=== PATIENT | female | born 1975 | race Hispanic/Latino ===

== ENCOUNTER 2018-01-12 15:07 | Emergency (ER) | payer BC ==
--- NOTE | 2018-01-12 16:50 | RAD REPORT ---
EXAM DESCRIPTION: CT - Head Brain Wo Cont - 01/12/2018 4:40 pm CLINICAL HISTORY: Headache COMPARISON: June 2016 TECHNIQUE: Axial 5 mm thick images of the head were obtained without IV contrast. All CT scans are performed using dose optimization technique as appropriate and may include automated exposure control or mA/KV adjustment according to patient size. FINDINGS: No intracranial hemorrhage, mass, edema or shift of mid-line structures. No acute infarcti on changes seen. No abnormal extra-axial fluid collections. Ventricles are normal. Mastoid air cells and visualized portions of the paranasal sinuses are clear. No acute bony findings. IMPRESSION: Negative non-contrast CT head examination for acute finding. No identifiable change com parison.
--- NOTE | 2018-01-12 17:09 | EDPHYS ---
Physician Documentation [facility] Name: Aure Mireles Age: 42 yrs Sex: Female : 1975 Arrival Date: 01/12/2018 Time: 15:13 Bed 20 Private MD: ED Physician Georges Castrejon HPI: 01/12 16:25 This 42 yrs old Female presents to ER via Ambulatory with complaints of jmm Headache - MIGRAINE. 16:25 The patient complains of pain to the top of head, forehead, right synagogue, left synagogue, jmm left frontal area, left side of the back of head, left occipital area, left base of the skull, right frontal area, right side of the back of head, right occipital area and right base of the skull. The patient describes the headache as aching. Onset: The symptoms/episode began/occurred gradually, 1 week(s) ago. Associated signs and symptoms: Pertinent negatives: fever, malaise, neck stiffness, vomiting. This is a 42 year old female with a history of dm, htn, that presents to the ED with a gradual onset headache beginning approx 1 week ago. Evaluated at urgent care. Currently taking tylenol 3 for pain which relieves pain. Patient denies acute onset, denies fever, denies weakness. . 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 - Social history:: Smoking status: Patient/guardian denies using tobacco. - Ebola Screening: : Patient denies travel to an Ebola-affected area in the 21 days before illness onset. ROS: 16:25 Constitutional: Negative for fever, chills, and weight loss, Cardiovascular: Negative jmm for chest pain, palpitations, and edema, Respiratory: Negative for shortness of breath, cough, wheezing, and pleuritic chest pain, Abdomen/GI: Negative for abdominal pain, nausea, vomiting, diarrhea, and constipation. 16:25 Neuro: Positive for headache. 16:25 All other systems are negative. Exam: 16:25 Constitutional: This is a well developed, well nourished patient who is awake, alert, jmm and in no acute distress. Head/Face: atraumatic. Chest/axilla: Normal chest wall appearance and motion. Cardiovascular: Regular rate and rhythm. No edema appreciated Respiratory: Normal respirations, no respiratory distress appreciated Abdomen/GI: Non distended, soft Back: Normal ROM Skin: General appearance color normal MS/ Extremity: Moves all extremities, no obvious deformities appreciated, no edema noted to the lower extremities 16:25 Neuro: Orientation: is normal, Mentation: is normal, Memory: is normal, Cerebellar function: normal finger to nose testing, Motor: is normal. 16:25 Psych: Behavior/mood is pleasant, cooperative. Vital Signs: 15:28 BP 136 / 90; Pulse 78; Resp 17; Temp 97.2(TE); Pain 6/10; tw2 16:14 BP 118 / 79; Pulse 70; Resp 18; Pulse Ox 96% ; rb1 17:14 BP 122 / 81; Pulse 74; Resp 18; Pulse Ox 99% on R/A; Pain 4/10; rb1 MDM: 16:25 Patient medically screened. db 17:01 Data reviewed: vital signs, nurses notes, radiologic studies, CT scan. Counseling: I chintan had a detailed discussion with the patient and/or guardian regarding: the historical points, exam findings, and any diagnostic results supporting the discharge/admit diagnosis, the need for outpatient follow up, to return to the emergency department if symptoms worsen or persist or if there are any questions or concerns that arise at home. 01/12 16:26 Order name: CT Head Brain wo Cont; Complete Time: 16:54 [facility] Administered Medications: 17:29 Not Given (Patient Refused): Ketorolac 30 mg IM once iw Disposition: 01/12/18 17:08 Discharged to Home. Impression: Headache. - Condition is Stable. - Discharge Instructions: General Headache Without Cause. - Medication Reconciliation Form, Thank You Letter, Antibiotic Education, Prescription Opioid Use form. - Follow up: Zackary Wellington MD; When: As needed; Reason: Continuance of care. Addendum: 01/14/2018 15:37 Co-signature as Attending Physician, Georges Castrejon MD. g s Signatures: Dispatcher [employer] EDMS Roel Gutierrez PA PA jmm Williams, Irene, RN RN iw Magdalena Luna, RN RN rb1 Jimena Quispe RN RN tw2 Georges Castrejon MD MD gs Corrections: (The following items were deleted from the chart) 01/12 17:30 17:08 01/12/2018 17:08 Discharged to Home. Impression: Headache. Condition is Stable. iw Forms are Medication Reconciliation Form, Thank You Letter, Antibiotic Education, Prescription Opioid Use. Follow up: Zackary Wellington; When: As needed; Reason: Continuance of care. chintan
--- NOTE | 2018-01-12 17:09 | ER ---
Nurse's Notes [facility] Name: Aure Mireles Age: 42 yrs Sex: Female : 1975 Arrival Date: 01/12/2018 Time: 15:13 Bed 20 Private MD: Diagnosis: Headache Presentation: 01/12 15:27 Presenting complaint: Patient states: i have been having migraines for going on 4 tw2 weeks, its gotten worse recently, Tuesday went to urgent care, started tylenol 3 and was told to come here to get cat scan. Presenting complaint: Patient states: also having some blurry vision. Transition of care: patient was not received from another setting of care. Onset of symptoms was January 12, 2018. Risk Assessment: Do you want to hurt yourself or someone else? Patient reports no desire to harm self or others. Initial Sepsis Screen: Does the patient meet any 2 criteria? No. Patient's initial sepsis screen is negative. Does the patient have a suspected source of infection? No. Patient's initial sepsis screen is negative. Care prior to arrival: None. 15:27 Method Of Arrival: Ambulatory tw2 15:27 Acuity: CHRISTOPHE 3 tw2 Triage Assessment: 15:50 Headache History: Other pt. stated, "I haven't every had a headache like this.". Pain: rb1 Also complains of photophobia. 15:50 General: Appears uncomfortable, Behavior is calm, cooperative, Denies fever. Pain: rb1 Complains of pain in head Pain currently is 6 out of 10 on a pain scale. Pain began x 4 weeks. Neuro: Level of Consciousness is awake, alert, obeys commands, Oriented to person, place, time, situation. Cardiovascular: Capillary refill < 3 seconds is brisk in bilateral fingers. Respiratory: Airway is patent Respiratory effort is even, unlabored, Respiratory pattern is regular, symmetrical. GI: Reports nausea, since x 4 weeks. : No signs and/or symptoms were reported regarding the genitourinary system. Derm: Skin is pink, warm \\T\\ dry. 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 - Social history:: Smoking status: Patient/guardian denies using tobacco. - Ebola Screening: : Patient denies travel to an Ebola-affected area in the 21 days before illness onset. Screenin:50 Abuse screen: Denies threats or abuse. Nutritional screening: No deficits noted. rb1 Tuberculosis screening: No symptoms or risk factors identified. Fall Risk None identified. Assessment: 15:31 Reassessment: pt states "i may have to leave to go to class at 6pm but i will come tw2 back". 15:50 General: Appears uncomfortable, Behavior is calm, cooperative, Denies fever. Pain: rb1 Complains of pain in entire head Pain currently is 6 out of 10 on a pain scale. Pain began x 4 weeks. Neuro: Level of Consciousness is awake, alert, obeys commands, Oriented to person, place, time, situation. Neuro: Reports headache entire. Cardiovascular: Capillary refill < 3 seconds is brisk in bilateral fingers. Respiratory: Airway is patent Respiratory effort is even, unlabored, Respiratory pattern is regular, symmetrical. GI: Reports nausea, since x 4 weeks. : No signs and/or symptoms were reported regarding the genitourinary system. Derm: Skin is dry, Skin is normal, Skin temperature is warm. Musculoskeletal: Range of motion: intact in all extremities. 16:40 Reassessment: Patient appears in no apparent distress at this time. No changes from rb1 previously documented assessment. 17:29 Reassessment: Patient appears in no apparent distress at this time. Patient and/or iw family updated on plan of care and expected duration. Pain level reassessed. Patient is alert, oriented x 3, equal unlabored respirations, skin warm/dry/pink. Patient states feeling better. Patient states symptoms have improved. Vital Signs: 15:28 BP 136 / 90; Pulse 78; Resp 17; Temp 97.2(TE); Pain 6/10; tw2 16:14 BP 118 / 79; Pulse 70; Resp 18; Pulse Ox 96% ; rb1 17:14 BP 122 / 81; Pulse 74; Resp 18; Pulse Ox 99% on R/A; Pain 4/10; rb1 ED Course: 15:13 Patient arrived in ED. sb2 15:27 Arm band placed on. tw2 15:28 Triage completed. tw2 15:50 Patient has correct armband on for positive identification. Bed in low position. Call rb1 light in reach. Side rails up X 1. Pulse ox on. NIBP on. 16:04 Roel Gutierrez PA is PHCP. [facility] 16:04 Georges Castrejon MD is Attending Physician. [facility] 16:16 Magdalena Luna, RN is Primary Nurse. rb1 16:41 CT Head Brain wo Cont In Process Unspecified. EDMS 17:08 Zackary Wellington MD is Referral Physician. [facility] 17:29 No provider procedures requiring assistance completed. Patient did not have IV access iw during this emergency room visit. Administered Medications: 17:29 Not Given (Patient Refused): Ketorolac 30 mg IM once iw Outcome: 17:08 Discharge ordered by MD. [facility] 17:29 Discharged to home ambulatory, with family. iw 17:29 Condition: good 17:29 Discharge instructions given to patient, family, Instructed on discharge instructions, follow up and referral plans. Demonstrated understanding of instructions, follow-up care. 17:30 Patient left the ED. iw Signatures: Dispatcher [employer] EDDC Roel Gutierrez PA PA jmm Williams, Irene, RN RN iw Magdalena Luna, RN RN rb1 Jimena Quispe RN RN tw2 Kiah Angelo sb2 Corrections: (The following items were deleted from the chart) 20:06 15:50 GI: No signs and/or symptoms were reported involving the gastrointestinal system. rb1 rb1
== END 2018-01-12 17:30 | disposition home or self-care (01) ==
LOC: ER 15:07
DX: R51 Headache (principal); I10 Essential (primary) hypertension; E11.9 Type 2 diabetes mellitus without complications; Z79.4 Long term (current) use of insulin; Z88.6 Allergy status to analgesic agent
CPT/HCPCS: 70450; 99283

== ENCOUNTER 2018-01-17 09:40 | Emergency (ER) | payer BC ==
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
== END 2018-01-17 10:14 | disposition home or self-care (01) ==
LOC: ER 09:40
DX: T24.109A Burn of first degree of unspecified site of unspecified lower limb, except ankle and foot, initial encounter (principal); X10.0XXA Contact with hot drinks, initial encounter; Y93.9 Activity, unspecified; Y92.9 Unspecified place or not applicable; Z88.6 Allergy status to analgesic agent; I10 Essential (primary) hypertension; E11.9 Type 2 diabetes mellitus without complications
CPT/HCPCS: 99283

== ENCOUNTER 2018-08-15 09:19 | Emergency (ER) | payer BC ==
[2018-08-15] MEDS ORDERED: OSELTAMIVIR 75 MG CAP ONE (10:53)
[2018-08-15] MEDS ORDERED: CEFTRIAXONE 1000 MG/VIAL ONE (10:54)
[2018-08-15] MEDS ORDERED: LIDOCAINE 1% MPF 2 ML AMPULE ONE (10:54)
[2018-08-15] MEDS ORDERED: ONDANSETRON 4 MG (ODT) TAB ONE (10:54)
--- NOTE | 2018-08-15 11:10 | RAD REPORT ---
EXAM DESCRIPTION: RAD - Chest Single View - 08/15/2018 11:04 am CLINICAL HISTORY: COUGH Chest pain. COMPARISON: CHEST SINGLE VIEW dated 04/01/2015 FINDINGS: Portable technique limits examination quality. The lungs are grossly clear. The heart is normal in size. No displaced fractures. IMPRESSION: No acute intrathoracic process suspected.
[2018-08-15] MEDS ORDERED: KETOROLAC 30 MG/ML INJ ONE (11:16)
--- NOTE | 2018-08-15 11:20 | EDPHYS ---
Physician Documentation [facility] Name: Aure Mireles Age: 42 yrs Sex: Female : 1975 Arrival Date: 08/15/2018 Time: 09:21 Bed 13 Private MD: Jermaine Carlton T ED Physician Sedrick Greenberg HPI: 08/15 10:25 This 42 yrs old Female presents to ER via Ambulatory with complaints of Flu trish Symptoms. 10:25 The patient has shortness of breath at rest, with light activity. Onset: The trish symptoms/episode began/occurred 3 day(s) ago. The patient's shortness of breath has no apparent modifying factors. The patient or guardian reports cough, flu symptoms, arthralgias, low-grade fever, myalgias, no appetite. Modifying factors: The symptoms are alleviated by nothing. the symptoms are aggravated by activity. Associated signs and symptoms: The patient has no apparent associated signs or symptoms. Historical: - Allergies: 09:24 Dilaudid; sv - PMHx: 09:24 Diabetes - NIDDM; Hypertension; sv - PSHx: 09:24 Hysterectomy; Appendectomy; sv - Immunization history:: Flu vaccine is not up to date. - Social history:: Smoking status: Patient/guardian denies using tobacco. - Ebola Screening: : No symptoms or risks identified at this time. - Family history:: not pertinent. ROS: 10:25 Eyes: Negative for injury, pain, redness, and discharge, ENT: Negative for injury, trish pain, and discharge, Neck: Negative for injury, pain, and swelling, Cardiovascular: Negative for chest pain, palpitations, and edema, Abdomen/GI: Negative for abdominal pain, nausea, vomiting, diarrhea, and constipation, Back: Negative for injury and pain, : Negative for injury, bleeding, discharge, and swelling, MS/Extremity: Negative for injury and deformity, Skin: Negative for injury, rash, and discoloration, Neuro: Negative for headache, weakness, numbness, tingling, and seizure, Psych: Negative for depression, anxiety, suicide ideation, homicidal ideation, and hallucinations, Allergy/Immunology: Negative for hives, rash, and allergies, Endocrine: Negative for neck swelling, polydipsia, polyuria, polyphagia, and marked weight changes. 10:25 Constitutional: Positive for chills, fever, malaise. 10:25 Respiratory: Positive for cough, with no reported sputum. 10:25 Abdomen/GI: Positive for nausea. Exam: 10:26 Constitutional: This is a well developed, well nourished patient who is awake, alert, trish and in no acute distress. Head/Face: Normocephalic, atraumatic. Eyes: Pupils equal round and reactive to light, extra-ocular motions intact. Lids and lashes normal. Conjunctiva and sclera are non-icteric and not injected. Cornea within normal limits. Periorbital areas with no swelling, redness, or edema. Neck: Trachea midline, no thyromegaly or masses palpated, and no cervical lymphadenopathy. Supple, full range of motion without nuchal rigidity, or vertebral point tenderness. No Meningismus. Chest/axilla: Normal chest wall appearance and motion. Nontender with no deformity. No lesions are appreciated. Cardiovascular: Regular rate and rhythm with a normal S1 and S2. No gallops, murmurs, or rubs. Normal PMI, no JVD. No pulse deficits. Respiratory: Lungs have equal breath sounds bilaterally, clear to auscultation and percussion. No rales, rhonchi or wheezes noted. No increased work of breathing, no retractions or nasal flaring. Abdomen/GI: Soft, non-tender, with normal bowel sounds. No distension or tympany. No guarding or rebound. No evidence of tenderness throughout. Back: No spinal tenderness. No costovertebral tenderness. Full range of motion. Skin: Warm, dry with normal turgor. Normal color with no rashes, no lesions, and no evidence of cellulitis. MS/ Extremity: Pulses equal, no cyanosis. Neurovascular intact. Full, normal range of motion. Neuro: Awake and alert, GCS 15, oriented to person, place, time, and situation. Cranial nerves II-XII grossly intact. Motor strength 5/5 in all extremities. Sensory grossly intact. Cerebellar exam normal. Normal gait. Psych: Awake, alert, with orientation to person, place and time. Behavior, mood, and affect are within normal limits. 10:26 ENT: Nose: Nasal mucosa: normal, Mouth: Oral mucosa: normal, pink and intact, moist, Gums: normal with healthy appearance, Posterior pharynx: Airway: normal, no evidence of obstruction, Tonsils: are normal in appearance, Uvula: normal, midline, non-edematous, no erythema, swelling, that is mild, erythema, that is mild, exudate, is not appreciated, peritonsillar mass, is not appreciated, pooling of secretions, is not appreciated. Vital Signs: 09:24 BP 155 / 90; Pulse 84; Resp 22; Temp 99(O); Weight 63.5 kg; Height 5 ft. 4 in. (162.56 sv cm); Pain 8/10; 10:30 BP 146 / 86; Pulse 80; Resp 20; Pulse Ox 99% on R/A; hb 09:24 Body Mass Index 24.03 (63.50 kg, 162.56 cm) sv MDM: 09:36 Patient medically screened. [facility] 10:26 Data reviewed: vital signs, nurses notes. [facility] 08/15 10:50 Order name: Flu [facility] 08/15 10:33 Order name: Chest Single View XRAY; Complete Time: 11:13 [facility] 08/15 10:26 Order name: EKG; Complete Time: 10:27 [facility] 08/15 10:26 Order name: EKG - Nurse/Tech; Complete Time: 10:51 [facility] Administered Medications: 10:51 Drug: Zofran 4 mg Route: PO; hb 10:51 Drug: Rocephin (cefTRIAXone) 1 grams Route: IM; Site: right deltoid; hb 10:51 Drug: Tamiflu 75 mg Route: PO; hb 11:07 Drug: TORadol 60 mg Route: IM; Site: left deltoid; hb Disposition: 08/15/18 11:19 Discharged to Home. Impression: Fever, unspecified, Acute upper respiratory infection, unspecified, Influenza due to identified novel influenza A virus, Type 2 diabetes mellitus. - Condition is Stable. - Discharge Instructions: Type 2 Diabetes Mellitus, Diagnosis, Adult, Fever, Adult, Influenza, Adult, Upper Respiratory Infection, Adult, Cool Mist Vaporizer, Upper Respiratory Infection, Adult, Dxzf-vi-[id number], Influenza, Adult, Lcgg-qa-Yuos, Cough, Adult, Qktp-hg-Qalj, Cough, Adult, Type 2 Diabetes Mellitus, Diagnosis, Adult, Mepv-cd-Kmbe. - Prescriptions for Cheratussin AC 10- 100 mg/5 mL Oral liquid - take 10 milliliter by ORAL route every 6 hours; 160 milliliter. Zofran 4 mg Oral Tablet - take 1 tablet by ORAL route every 12 hours As needed; 14 tablet. Zithromax Z- Josias 250 mg Oral Tablet - take 1 tablet by ORAL route as directed for 5 days Day 1 - take two (2) tablets one time. Day 2, 3, 4 , 5 take one (1) tablet once daily.; 6 tablet. - Medication Reconciliation Form, Thank You Letter, Antibiotic Education, Prescription Opioid Use, Work release form form. - Follow up: Jermaine Carlton; When: 2 - 3 days; Reason: Recheck today's complaints, Continuance of care, Re-evaluation by your physician. - Problem is new. - Symptoms have improved. Signatures: Dispatcher [employer] EDMS Adri Givens RN RN Sedrick Sanders MD MD cha Baxter, Heather, RN RN hb Corrections: (The following items were deleted from the chart) 11:44 11:19 08/15/2018 11:19 Discharged to Home. Impression: Fever, unspecified; Acute upper hb respiratory infection, unspecified; Influenza due to identified novel influenza A virus; Type 2 diabetes mellitus. Condition is Stable. Discharge Instructions: Type 2 Diabetes Mellitus, Diagnosis, Adult, Fever, Adult, Influenza, Adult, Upper Respiratory Infection, Adult, Cool Mist Vaporizer, Upper Respiratory Infection, Adult, Cbtb-fz-Ywoa, Influenza, Adult, Voer-ay-Mvxq, Cough, Adult, Rqvi-ot-Wilm, Cough, Adult, Type 2 Diabetes Mellitus, Diagnosis, Adult, Tnun-ae-Biid. Prescriptions for Cheratussin AC 10-100 mg/5 mL Oral liquid - take 10 milliliter by ORAL route every 6 hours; 160 milliliter, Zofran 4 mg Oral Tablet - take 1 tablet by ORAL route every 12 hours As needed; 14 tablet, Zithromax Z-Josias 250 mg Oral Tablet - take 1 tablet by ORAL route as directed for 5 days Day 1 - take two (2) tablets one time. Day 2, 3, 4 , 5 take one (1) tablet once daily.; 6 tablet. and Forms are Medication Reconciliation Form, Thank You Letter, Antibiotic Education, Prescription Opioid Use. Follow up: Jermaine Carlton; When: 2 - 3 days; Reason: Recheck today's complaints, Continuance of care, Re-evaluation by your physician. Problem is new. Symptoms have improved. trish
--- NOTE | 2018-08-15 11:20 | ER ---
Nurse's Notes [facility] Name: Aure Mireles Age: 42 yrs Sex: Female : 1975 Arrival Date: 08/15/2018 Time: 09:21 Bed 13 Private MD: Jermaine Carlton T Diagnosis: Fever, unspecified;Acute upper respiratory infection, unspecified;Influenza due to identified novel influenza A virus;Type 2 diabetes mellitus Presentation: 08/15 09:23 Presenting complaint: Patient states: nasal congestion, sore throat, idalmis ear pain, sv chest pain, back pain, nausea, cough x 3 days. Transition of care: patient was not received from another setting of care. Onset of symptoms was August 12, 2018. Care prior to arrival: None. 09:23 Method Of Arrival: Ambulatory sv 09:23 Acuity: CHRISTOPHE 3 sv Historical: - Allergies: 09:24 Dilaudid; sv - PMHx: 09:24 Diabetes - NIDDM; Hypertension; sv - PSHx: 09:24 Hysterectomy; Appendectomy; sv - Immunization history:: Flu vaccine is not up to date. - Social history:: Smoking status: Patient/guardian denies using tobacco. - Ebola Screening: : No symptoms or risks identified at this time. - Family history:: not pertinent. Assessment: 10:00 General: Appears in no apparent distress. ill, Behavior is calm, cooperative. Pain: hb Pain currently is 8 out of 10 on a pain scale. Neuro: Level of Consciousness is awake, alert, obeys commands, Oriented to person, place, time, situation. Cardiovascular: Capillary refill < 3 seconds Patient's skin is warm and dry. Respiratory: Airway is patent Respiratory effort is even, unlabored, Respiratory pattern is regular, symmetrical, Breath sounds are clear bilaterally. GI: Reports nausea. : No signs and/or symptoms were reported regarding the genitourinary system. EENT: No signs and/or symptoms were reported regarding the EENT system. Derm: Skin is intact, is healthy with good turgor, Skin is pink, warm \T\ dry. Musculoskeletal: Reports body aches. 10:56 Reassessment: Patient appears in no apparent distress at this time. No changes from hb previously documented assessment. Patient and/or family updated on plan of care and expected duration. Pain level reassessed. Patient is alert, oriented x 3, equal unlabored respirations, skin warm/dry/pink. Vital Signs: 09:24 BP 155 / 90; Pulse 84; Resp 22; Temp 99(O); Weight 63.5 kg; Height 5 ft. 4 in. (162.56 sv cm); Pain 8/10; 10:30 BP 146 / 86; Pulse 80; Resp 20; Pulse Ox 99% on R/A; hb 09:24 Body Mass Index 24.03 (63.50 kg, 162.56 cm) sv ED Course: 09:21 Patient arrived in ED. mr 09:22 Jermaine Carlton MD is Private Physician. mr 09:24 Triage completed. sv 09:26 Arm band placed on. sv 09:36 Sedrick Greenberg MD is Attending Physician. trish 09:57 Emilie Woody, RN is Primary Nurse. hb 10:49 EKG done, by plastic technician. reviewed by Sedrick Greenberg MD. at1 11:05 Chest Single View XRAY In Process Unspecified. EDMS 11:19 Jermaine Carlton MD is Referral Physician. trish Administered Medications: 10:51 Drug: Zofran 4 mg Route: PO; hb 10:51 Drug: Rocephin (cefTRIAXone) 1 grams Route: IM; Site: right deltoid; hb 10:51 Drug: Tamiflu 75 mg Route: PO; hb 11:07 Drug: TORadol 60 mg Route: IM; Site: left deltoid; hb Outcome: 11:19 Discharge ordered by . trish 11:44 Patient left the ED. hb Signatures: Dispatcher [employer] EDMS Adri Givens RN RN sv Anderson, Corey, MD MD cha Rivera, Mary Eusebia Sesay, hearing care professional EKG Tat1 Emilie Woody, RN RN hb Corrections: (The following items were deleted from the chart) 09:26 09:23 Presenting complaint: Patient states: nasal congestion, sore throat, idalmis ear sv pain, chest pain, back pain, cough x 3 days. sv 09:26 09:24 Resp 22bpm; Temp 99F Oral; 63.5 kg; Height 5 ft. 4 in.; BMI: 24.0; Pain 8/10; sv sv
--- NOTE | 2018-08-16 07:48 | EKG ---
Test Date: 2018-08-15 Test Time: 10:36:37 Metrology Technician: NICHOLE MEASUREMENT RESULTS: Intervals: Rate: 74 AK: 162 QRSD: 84 QT: 382 QTc: 424 [place]: P: 77 AK: 162 QRS: 29 T: 82 INTERPRETIVE STATEMENTS: Normal sinus rhythm Normal ECG Compared to ECG 04/01/2015 13:48:26 Sinus arrhythmia no longer present Electronically Signed On 08-16-18 07:47:50 CDT by Alex Mcmullen
== END 2018-08-15 11:44 | disposition home or self-care (01) ==
LOC: ER 09:19
DX: J06.9 Acute upper respiratory infection, unspecified (principal); J09.X2 Influenza due to identified novel influenza A virus with other respiratory manifestations; E11.9 Type 2 diabetes mellitus without complications
CPT/HCPCS: 71045; 87804; 93005; 96372; 99283; J2001